=== PATIENT | female | born 1935 | race Caucasian/White ===

== ENCOUNTER 2017-09-20 12:43 | Emergency (ER) | payer MEDICARE, OTHER ==
--- NOTE | 2017-09-20 13:23 | Emergency Department Record ---
History of Present Illness - General Chief Complaint: Hypertension Stated Complaint: HIGH BLOOD PRESSURE, RT EYE BLOOD SHOT Time Seen by Provider: 09/20/17 13:18 Source: Patient Mode of Arrival: Ambulatory Limitations: No limitations - History of Present Illness Onset/Timin -: Hour(s) Timing: Unsure History of Same: No History of Trauma: No Improves With: Nothing Worsens With: Nothing Associated Symptoms: Denies other symptoms - [place] Coma Scale Eye Response: (4) Open spontaneously Motor Response: (6) Obeys commands Verbal Response: (5) Oriented [place] Total: 15 - Related Data Home Medications Medication Instructions Recorded Confirmed Last Taken Desvenlafaxine [Desvenlafaxine ER] 50 mg PO DAILY 09/20/17 09/20/17 Unknown Estrogen,Kala/Me-Testosterone 1 tab PO DAILY 09/20/17 09/20/17 Unknown [Covaryx Tablet] Metoprolol Tartrate [Lopressor] 50 mg PO BID 09/20/17 09/20/17 Unknown Mirtazapine 45 mg PO DAILY 09/20/17 09/20/17 Unknown Nabumetone 750 mg PO DAILY 09/20/17 09/20/17 Unknown Pantoprazole Sodium [Protonix] 40 mg PO DAILY 09/20/17 09/20/17 Unknown Rosuvastatin Calcium 40 mg PO DAILY 09/20/17 09/20/17 Unknown Tacrolimus 1 gm TOP DAILY 09/20/17 09/20/17 Unknown Trazodone HCl [Desyrel] 100 mg PO QHS 09/20/17 09/20/17 Unknown Allergies Allergy/AdvReac Type Severity Reaction Status Date / Time Penicillins Allergy HIVES Verified 09/20/17 13:06 Travel Screening - Travel/Exposure Within Last 30 Days Have you traveled within the last 30 days?: No Past Medical History - SOCIAL HISTORY Smoking Status: Never smoker Alcohol Use: None Drug Use: None - RESPIRATORY Hx Respiratory Disorders: No - CARDIOVASCULAR Hx Cardio Disorders: Yes Hx Cardiac Cath: Yes - NEURO Hx Neuro Disorders: No - GI Hx GI Disorders: No - Hx Genitourinary Disorders: No - ENDOCRINE Hx Endocrine Disorders: No - PSYCH Hx Psych Problems: No - HEMATOLOGY/ONCOLOGY Hx Hematology/Oncology Disorders: No Family Medical History Any Significant Family History?: No Course Vital Signs 09/20/17 13:10 Temperature 98.2 F Pulse Rate [ 72 Rn Primary [facility] ] Respiratory 20 Rate Blood Pressure 177/91 [Left Arm] Pulse Ox 96 Disposition Quality - Blood Pressure Screening Does Patient Have Any of the Following: No Blood Pressure Classification: Hypertensive Reading Systolic Measurement: 177 Diastolic Measurement: 91
[2017-09-20] MEDS ORDERED: PROPARACAINE HCL OPTH 15ML BTL OPTH ONE (13:24)
--- NOTE | 2017-09-20 13:29 | Emergency Department Record ---
History of Present Illness - General Chief complaint: Hypertension Stated complaint: HIGH BLOOD PRESSURE, RT EYE BLOOD SHOT Time Seen by Provider: 09/20/17 13:18 Source: Patient Mode of Arrival: Ambulatory Limitations: No limitations - History of Present Illness Initial comments: 82 yo female noted redness to her left eye today. She has had some recent itching and sneezing. She denies and trauma. No eye pain. No vision changes. After seeing the eye she was concerned about her blood pressure so she checked it and it was elevated. No blood thinners. She is on a baby aspirin. No headache, no dizziness, no nausea, vomiting. No double vision. She does have an eye doctor. MD chief complaint: Eye redness Onset/Timin -: Hour(s) Onset Description: Sudden Location: Left eye Place: Home If Injury: None Eye Symptoms: Redness Severity: Mild If Pain, Quality: Other (No pain) Consistency: Constant Context: Other (Glasses) - Related Data Home Medications Medication Instructions Recorded Confirmed Last Taken Desvenlafaxine [Desvenlafaxine ER] 50 mg PO DAILY 09/20/17 09/20/17 Unknown Estrogen,Kala/Me-Testosterone 1 tab PO DAILY 09/20/17 09/20/17 Unknown [Covaryx Tablet] Metoprolol Tartrate [Lopressor] 50 mg PO BID 09/20/17 09/20/17 Unknown Mirtazapine 45 mg PO DAILY 09/20/17 09/20/17 Unknown Nabumetone 750 mg PO DAILY 09/20/17 09/20/17 Unknown Pantoprazole Sodium [Protonix] 40 mg PO DAILY 09/20/17 09/20/17 Unknown Rosuvastatin Calcium 40 mg PO DAILY 09/20/17 09/20/17 Unknown Tacrolimus 1 gm TOP DAILY 09/20/17 09/20/17 Unknown Trazodone HCl [Desyrel] 100 mg PO QHS 09/20/17 09/20/17 Unknown Allergies Allergy/AdvReac Type Severity Reaction Status Date / Time Penicillins Allergy HIVES Verified 09/20/17 13:06 Travel Screening - Travel/Exposure Within Last 30 Days Have you traveled within the last 30 days?: No Review of Systems Constitutional: Denies: Chills, Fever, Malaise, Weakness Eyes: Reports: Other (redness). Denies: Eye discharge, Eye pain, Photophobia, Vision change ENT: Denies: Congestion, Throat pain Respiratory: Denies: Cough Cardiovascular: Denies: Chest pain, Syncope Endocrine: Denies: Fatigue Gastrointestinal: Denies: Abdominal pain, Diarrhea, Nausea, Vomiting Genitourinary: Denies: Dysuria Musculoskeletal: Denies: Arthralgia, Back pain, Joint swelling, Myalgia Skin: Denies: Bruising, Change in color, Rash Neurological: Denies: Confusion, Headache, Numbness, Weakness Psychiatric: Denies: Anxiety Hematological/Lymphatic: Denies: Blood Clots, Easy bleeding, Easy bruising, Swollen glands Past Medical History - SOCIAL HISTORY Smoking Status: Never smoker Alcohol Use: None Drug Use: None - RESPIRATORY Hx Respiratory Disorders: No - CARDIOVASCULAR Hx Cardio Disorders: Yes Hx Cardiac Cath: Yes - NEURO Hx Neuro Disorders: No - GI Hx GI Disorders: No - Hx Genitourinary Disorders: No - ENDOCRINE Hx Endocrine Disorders: No - PSYCH Hx Psych Problems: No - HEMATOLOGY/ONCOLOGY Hx Hematology/Oncology Disorders: No Family Medical History Any Significant Family History?: No Physical Exam - General General Appearance: Alert, Oriented x3, Cooperative, No acute distress Limitations: No limitations - Head Head exam: Atraumatic, Normocephalic, Normal inspection - Eye Eye exam: PERRL, EOMI, Other (subconjunctival hemorrhage noted throughout). negative: Normal appearance, Conjunctival injection, Nystagmus, Periorbital swelling, Periorbital tenderness, Scleral icterus Pupils: Normal accommodation. negative: Irregular, Unequal - ENT ENT exam: Normal exam, Mucous membranes moist Ear exam: Normal external inspection Nasal Exam: Normal inspection Mouth exam: Normal external inspection Teeth exam: Normal inspection Throat exam: Normal inspection - Neck Neck exam: Normal inspection, Full ROM. negative: Tenderness - Respiratory Respiratory exam: Normal lung sounds bilaterally. negative: Respiratory distress - Cardiovascular Cardiovascular Exam: Regular rate, Normal rhythm, Normal heart sounds - Rectal Rectal exam: Deferred - exam: Deferred - Extremities Extremities exam: Normal inspection - Neurological Neurological exam: Alert, CN II-XII intact, Normal gait, Oriented X3. negative : Motor sensory deficit - Psychiatric Psychiatric exam: Normal affect, Normal mood - Skin Skin exam: Dry, Intact, Normal color, Warm Course Vital Signs 09/20/17 13:10 Temperature 98.2 F Pulse Rate [ 72 [employer] ] Respiratory 20 Rate Blood Pressure 177/91 [Left Arm] Pulse Ox 96 - Reevaluation(s) Reevaluation #1: The examination is consistent with sub conjunctival hemorrhage. No AC blood. No vision loss. No pain. No other symptoms. 09/20/17 13:28 09/20/17 14:14 No acute changes on the labs Slip lamp was performed No blood in the anterior chamber She has diffuse subconj blood VA is 20 / 40 in both eye No stain uptake The patient is to call her eye doctor tomorrow for close follow up and recheck Medical Decision Making - Lab Data Result diagrams: 09/20/17 13:13 09/20/17 13:13 Disposition Disposition: Discharge Clinical Impression: Subconjunctival hemorrhage Qualifiers: Laterality: left Qualified Code(s): H11.32 - Conjunctival hemorrhage, left eye Disposition: Home, Self-Care Condition: (1) Good Instructions: Subconjunctival Hemorrhage (ED) Additional Instructions: Call your eye doctor to be seen tomorrow Hold your aspirin until you see your eye doctor Referrals: LACY PRATT [] - Forms: Patient Portal Access Time of Disposition: 14:23 Quality - Quality Measures Quality Measures: N/A - Blood Pressure Screening Does Patient Have Any of the Following: Active Dx of HTN Blood Pressure Classification: Hypertensive Reading Systolic Measurement: 177 Diastolic Measurement: 91 Screening for High Blood Pressure: Patient Exclusion, Hx of HTN [G9744]
[2017-09-20 13:35] LABS: BASO % 0.2 % (0-6); EOS % 3.2 % (0-6); GRAN % 50.6 % (47-80); HEMATOCRIT 45.7 % (35.0-47.0); HEMOGLOBIN 15.5 gm/dl (11.6-16.0); LYMPH % 36.6 % (16-45); MEAN CELL VOLUME 89.4 fl (81-97); MEAN CORPUSCULAR HEMOGLOBIN 30.3 pg (27-33); MEAN CORPUSCULAR HGB CONC 33.9 g/dl (32-36); MEAN PLATELET VOLUME 12.6 fl (7.4-10.4); MONO % 9.4 % (0-9); PLATELET COUNT 194 K/uL (130-400); RED BLOOD COUNT 5.11 M/uL (3.80-5.40); RED CELL DISTRIBUTION WIDTH 14.1 % (11.5-14.5); WHITE BLOOD COUNT W/O DIFF 8.1 K/uL (4.2-12.2)
[2017-09-20 13:46] LABS: CREATININE 1.1 mg/dL (0.5-0.9); PROTHROMBIN TIME (PATIENT) 10.3 SECONDS (9.5-12.1)
== END 2017-09-20 14:40 | disposition home or self-care (01) ==
LOC: ER 12:43
DX: H11.32 Conjunctival hemorrhage, left eye (principal); I10 Essential (primary) hypertension
CPT/HCPCS: 80048; 85025; 85610; 85730; 99283

== ENCOUNTER 2018-03-01 19:17 | Emergency (ER) | payer MEDICARE, OTHER ==
--- NOTE | 2018-03-01 19:29 | Emergency Department Record ---
History of Present Illness - General Chief complaint: Bite Insect/other Stated complaint: BEESTNG/LT LHAND Time Seen by Provider: 03/01/18 19:28 Source: Patient Mode of Arrival: Ambulatory Limitations: No limitations - History of Present Illness Initial comments: 82 yo female presents to ED for evaluation of a bee sting to the left wrist that occurred approximately 8 hours ago. Patient reports localized swelling and itching, denies throat swelling, diffuse rash/hives, or wheezing/difficulty in breathing symptoms. Patient denies taking anything for her symptoms prior to arrival. MD complaint: Insect bite/sting Onset/Timin -: Hour(s) Location: L hand Severity: Mild Quality: Other (Itching) Improves with: None Worsens with: None Context: Witnessed insect bite Associated symptoms: Itching Treatments Prior to Arrival: None - Related Data Home Medications Medication Instructions Recorded Confirmed Last Taken Amlodipine Besylate [Norvasc] 10 mg PO DAILY 03/01/18 03/01/18 Unknown Lisinopril 20 mg PO DAILY 03/01/18 03/01/18 Unknown Mirabegron [Myrbetriq] 50 mg PO DAILY 03/01/18 03/01/18 Unknown Allergies Allergy/AdvReac Type Severity Reaction Status Date / Time Penicillins Allergy HIVES Verified 09/20/17 13:06 Travel Screening - Travel/Exposure Within Last 30 Days Have you traveled within the last 30 days?: No Review of Systems Constitutional: Denies: Chills, Fever, Malaise, Night sweats Eyes: Denies: Eye discharge, Eye pain ENT: Denies: Congestion, Ear pain, Epistaxis Respiratory: Denies: Cough, Dyspnea Cardiovascular: Denies: Chest pain, Dyspnea on exertion Endocrine: Denies: Fatigue, Heat or cold intolerance Gastrointestinal: Denies: Abdominal pain, Nausea, Vomiting Genitourinary: Denies: Incontinence, Retention Musculoskeletal: Denies: Arthralgia, Back pain Skin: Reports: Other (Itching/swelling to the left wrist). Denies: Bruising, Change in color Neurological: Denies: Abnormal gait, Confusion, Headache Psychiatric: Denies: Anxiety Hematological/Lymphatic: Denies: Anemia, Blood Clots Past Medical History - SOCIAL HISTORY Smoking Status: Never smoker Alcohol Use: None Drug Use: None - RESPIRATORY Hx Respiratory Disorders: No - CARDIOVASCULAR Hx Cardio Disorders: Yes Hx Cardiac Cath: Yes - NEURO Hx Neuro Disorders: No - GI Hx GI Disorders: No - Hx Genitourinary Disorders: No - ENDOCRINE Hx Endocrine Disorders: No - PSYCH Hx Psych Problems: No - HEMATOLOGY/ONCOLOGY Hx Hematology/Oncology Disorders: No Family Medical History Any Significant Family History?: No Physical Exam - General General Appearance: Alert, Oriented x3, Cooperative, Mild distress Limitations: No limitations - Head Head exam: Atraumatic, Normocephalic, Normal inspection Head exam detail: negative: Abrasion, Contusion, Queen's sign, General tenderness, Hematoma, Laceration - Eye Eye exam: Normal appearance. negative: Conjunctival injection, Periorbital swelling, Periorbital tenderness, Scleral icterus - ENT Ear exam: negative: Auricular hematoma, Auricular trauma Nasal Exam: negative: Active bleeding, Discharge, Dried blood, Foreign body Mouth exam: negative: Drooling, Laceration, Muffled voice, Tongue elevation Throat exam: Other (NO uvular edema present). negative: Tonsillomegaly - Neck Neck exam: Normal inspection. negative: Meningismus, Tenderness - Respiratory Respiratory exam: Normal lung sounds bilaterally. negative: Respiratory distress, Rhonchi, Stridor, Wheezes - Cardiovascular Cardiovascular Exam: Regular rate, Normal rhythm, Normal heart sounds - GI/Abdominal GI/Abdominal exam: Soft. negative: Rebound, Rigid, Tenderness - Rectal Rectal exam: Deferred - exam: Deferred - Extremities Extremities exam: Other (Mild STS to the dorsum of the left hand, no erythema present, no evidence for infection is present on examination. FROM of all digits, strong distal radial pulse present.). negative: Calf tenderness, Pedal edema, Tenderness - Back Back exam: Denies: CVA tenderness (R), CVA tenderness (L) - Neurological Neurological exam: Alert, Normal gait, Oriented X3 - Psychiatric Psychiatric exam: Normal affect, Normal mood - Skin Skin exam: Normal color. negative: Abrasion Type of lesion: negative: abrasion Course Vital Signs 03/01/18 19:18 Temperature 98.1 F Pulse Rate 74 Respiratory 16 Rate Blood Pressure 149/60 Pulse Ox 96 - Reevaluation(s) Reevaluation #1: 03/01/18 19:32 Patient was seen and examined. Examination appears c/w localized reaction to bee sting Will administer Benadryl in ED and as needed at home Discussed Prednisone with the patient, patient declined. Patient is otherwise well appearing without any evidence for systemic reaction, appears stable for discharge at this time. Disposition Disposition: Discharge Clinical Impression: Bee sting Qualifiers: Encounter type: initial encounter Injury intent: undetermined intent Qualified Code(s): T63.444A - Toxic effect of venom of bees, undetermined, initial encounter Disposition: Home, Self-Care Condition: (2) Stable Instructions: Insect Bite or Sting (ED) Additional Instructions: Return to ED if your symptoms worsen or if you have any concerns. Benadryl as needed. Follow-up with your family doctor in 3-5 days as directed. Forms: Patient Portal Access Time of Disposition: 19:29 Quality - Quality Measures Quality Measures: N/A - Blood Pressure Screening Does Patient Have Any of the Following: Active Dx of HTN Blood Pressure Classification: Hypertensive Reading Systolic Measurement: 149 Diastolic Measurement: 60 Screening for High Blood Pressure: Patient Exclusion, Hx of HTN [G9744]
[2018-03-01] MEDS: DIPHENHYDRAMINE HCL 25 MG CAPSULE PO ONE (19:33)
== END 2018-03-01 19:41 | disposition home or self-care (01) ==
LOC: ER 19:17
DX: T63.441A Toxic effect of venom of bees, accidental (unintentional), initial encounter (principal); M79.89 Other specified soft tissue disorders
CPT/HCPCS: 99282